=== PATIENT | male | born 1990 | race Caucasian/White ===

== ENCOUNTER 2017-08-05 15:27 | Emergency (ER) | payer OTHER ==
[2017-08-05 17:16] VITALS: BP 137/72
--- NOTE | 2017-08-05 17:16 | UC ---
Throat Pain/Nasal [place] HPI - HPI Summary HPI Summary: 27 Y/o male presents to the urgent care c/o nasal congestion with clear nasal discharge and dry cough since yesterday. Mild chills and body aches this morning. Pt reports his was Dx with Influenza B yesterday. Pt denies fever , SOB, chest pain, N/V/D, abdominal pain. - History of Current Complaint Chief Complaint: UCRespiratory Stated Complaint: FLU SYMPTOMS Time Seen by Provider: 08/05/17 17:14 Hx Obtained From: Patient Onset/Duration: Gradual Onset, Lasting Days - 1 day, Still Present Severity: Mild Pain Intensity: 0 Pain Scale Used: 0-10 Numeric Cough: Nonproductive Associated Signs & Symptoms: Positive: Nasal Discharge. Negative: Fever - Epiglottits Risk Factors Epiglottis Risk Factors: Negative - Allergies/Home Medications Allergies/Adverse Reactions: Allergies Allergy/AdvReac Type Severity Reaction Status Date / Time Azithromycin Allergy Hives Verified 08/05/17 17:10 [From Zithromax Z-Per] Cefaclor [From Ceclor] Allergy Rash Verified 08/05/17 17:10 PMH/Surg Hx/FS Hx/Imm Hx Previously Healthy: Yes Respiratory History: Asthma GI/ History: Ulcer - Surgical History Surgical History: Yes Surgery Procedure, Year, and Place: GALL BLADDER REMOVAL 07/10 - Family History Known Family History: Positive: Cardiac Disease, Hypertension, Diabetes - Social History Occupation: Employed Full-time Lives: With Family Alcohol Use: Occasionally Substance Use Type: Marijuana Smoking Status (MU): Heavy Every Day Tobacco Smoker Amount Used/How Often: 1.5 PPD Have You Smoked in the Last Year: Yes - Immunization History Most Recent Influenza Vaccination: NO Review of Systems Constitutional: Chills, Other - bodyaches Skin: Negative Eyes: Negative ENT: Nasal Discharge, Sinus Congestion Respiratory: Cough Cardiovascular: Negative Gastrointestinal: Negative Genitourinary: Negative Motor: Negative Neurovascular: Negative Musculoskeletal: Negative Neurological: Negative Psychological: Negative Is Patient Immunocompromised?: No All Other Systems Reviewed And Are Negative: Yes Physical Exam Triage Information Reviewed: Yes Vital Signs: Initial Vital Signs Temp 96.7 F 08/05/17 17:10 Pulse 85 08/05/17 17:10 Resp 18 08/05/17 17:10 BP 137/72 08/05/17 17:10 Pulse Ox 99 08/05/17 17:10 - Additional Comments VITAL SIGNS: Reviewed. GENERAL: Patient is a well developed and nourished male who is sitting comfortable in the examining table. Patient is not in any acute respiratory distress. HEAD AND FACE: No signs of trauma. No ecchymosis, hematomas or skull depressions. No sinus tenderness. edematous erythematous nasal mucosa with yellowish discharge, EYES: PERRLA, EOMI x 2, No injected conjunctiva, clear watery eyes, no nystagmus. No photophobia. EARS: Hearing grossly intact. Ear canals and tympanic membranes are within normal limits. MOUTH: Positive pharynx with mild erythema, no exudates,no palatal petechiae. no B/L tonsillar enlargement Uvula in midline. NECK: Supple, trachea is midline, Positive anterior cervical lymphadenopathy, no JVD, no carotid bruit, no c-spine tenderness, neck with full ROM. No meningeal signs, no Kernig's or brudzinskis signs. CHEST: Symmetric, no tenderness at palpation LUNGS: Clear to auscultation bilaterally. No wheezing or crackles. CVS: Regular rate and rhythm, S1 and S2 present, no murmurs or gallops appreciated. ABDOMEN: Soft, non-tender. No signs of distention. No rebound no guarding, and no masses palpated. Bowel sounds are normal. EXTREMITIES: FROM in all major joints, no edema, no cyanosis or clubbing. NEURO: Alert and oriented x 3. No acute neurological deficits. Speech is normal and follows commands. SKIN: Dry and warm Throat Pain/Nasal Course/Dx - Course Course Of Treatment: 27 Y/o male presents to the urgent care c/o nasal congestion with clear nasal discharge and dry cough since yesterday. Mild chills and body aches this morning. Pt reports his was Dx with Influenza B yesterday. Pt denies fever, SOB, chest pain, N/V/D, abdominal pain.Hx obtained. Pt with URI on examination. Influenza A&B ordered: result: negative.Pt exposure to Influenza B. and Daughter w/ Influenza B. Pt Rx Tamiflu PO. Advised on hand washing. Pt advised to rest, increase fluid intake, eat well and avoid strenuous exercise. If symptoms do not improve or worsen advised to return to the urgent care or f/u with her PCP for further evaluation and treatment. Pt understood and agreed with plan of care. - Differential Dx/Diagnosis Differential Diagnosis/HQI/PQRI: Influenza, Laryngitis, Pharyngitis, Sinusitis, URI Provider Diagnoses: 1- Exposure to Influenza B. 2- URI Discharge - Discharge Plan Condition: Stable Disposition: HOME Prescriptions: Oseltamivir CAP* [Tamiflu CAP*] 75 mg PO BID #10 cap Patient Education Materials: Influenza (ED) Forms: *Work Release Referrals: [facility] [Outside] - 1 Day Additional Instructions: 1- Your and daughter are positive for Influenza B. Your test is negative however i will Tx prophylactically 1- Please take the full course of the antiviral to avoid resistance. Encourage hand washing and wear a mask to avoid spreading. 2-Please continue taking Tylenol PO q6-8hrs prn as instructed after meals to alleviate fever, and sore throat. Increase fluid intake, eat well, rest and avoid strenuous exercise 3-If symptoms do not improve or worsen please return to the urgent care or f/u with your PCP in 2 days for further evaluation and treatment.
== END 2017-08-05 18:11 | disposition home or self-care (01) ==
LOC: UCCORT 15:27
DX: J06.9 Acute upper respiratory infection, unspecified (principal); Z20.828 Contact with and (suspected) exposure to other viral communicable diseases; J45.909 Unspecified asthma, uncomplicated; Z88.1 Allergy status to other antibiotic agents; Z90.49 Acquired absence of other specified parts of digestive tract; F12.90 Cannabis use, unspecified, uncomplicated; F17.210 Nicotine dependence, cigarettes, uncomplicated
CPT/HCPCS: 87502; 99212; G0463

== ENCOUNTER 2018-01-12 14:36 | Emergency (ER) | payer OTHER ==
[2018-01-12 14:53] VITALS: BP 142/84
--- NOTE | 2018-01-12 15:43 | UC ---
Cardiac HPI - HPI Summary HPI Summary: 27 yo male with the onset of mild substernal chest pain this AM Lasted 15-20 minutes now completely resolved has had multiple similar spells the past 4 mos seen at [facility] recently with a much more severe episode record reviewed normal EKG normal CXR normal labs including TROP Has appt with lead customer service representative late January Primary has ordered an EST and ECHO...not yet scheduled - History of Current Complaint Chief Complaint: UCChestPain Stated Complaint: CHEST PAIN Time Seen by Provider: 01/12/18 14:38 Hx Obtained From: Patient Onset/Duration: Sudden Onset, Lasting Minutes Timing: Constant Initial Severity: Mild Current Severity: None Pain Intensity: 0 Chest Pain Location: Mid Sternal Character: Pressure/Squeezing Aggravating Factor(s): Nothing Alleviating Factor(s): Spontaneous Resolution Associated Signs & Symptoms: Positive: Chest Pain - Allergy/Home Medications Allergies/Adverse Reactions: Allergies Allergy/AdvReac Type Severity Reaction Status Date / Time azithromycin Allergy Hives Verified 01/12/18 14:41 cefaclor [From [facility]] Allergy Rash Verified 01/12/18 14:41 Home Medications: Home Medications Aspirin 81 mg CHEW TAB* 1 tab DAILY 01/12/18 [History Confirmed 01/12/18] PMH/Surg Hx/FS Hx/Imm Hx Previously Healthy: Yes - Surgical History Surgical History: Yes Surgery Procedure, Year, and Place: GALL BLADDER REMOVAL 07/10 - Family History Known Family History: Positive: Cardiac Disease, Hypertension, Diabetes - Social History Alcohol Use: Occasionally Substance Use Type: Marijuana Substance Use Comment - Amount & Last Used: 01/12/18 Smoking Status (MU): Heavy Every Day Tobacco Smoker Type: Cigarettes Amount Used/How Often: 1.5 PPD Have You Smoked in the Last Year: Yes Cessation Counseling: Patient Advised to Stop - Immunization History Most Recent Influenza Vaccination: NO Review of Systems Constitutional: Negative Skin: Negative Eyes: Negative ENT: Negative Respiratory: Negative Cardiovascular: Chest Pain Gastrointestinal: Negative Genitourinary: Negative Motor: Negative Neurovascular: Negative Musculoskeletal: Negative Neurological: Negative Psychological: Negative Is Patient Immunocompromised?: No All Other Systems Reviewed And Are Negative: Yes Physical Exam Triage Information Reviewed: Yes Appearance: Well-Appearing, No Pain Distress, Well-Nourished Vital Signs: Initial Vital Signs Temp 98.2 F 01/12/18 14:41 Pulse 93 01/12/18 14:41 Resp 26 01/12/18 14:41 BP 142/84 01/12/18 14:41 Pulse Ox 98 01/12/18 14:41 Vital Signs Reviewed: Yes Eyes: Positive: Conjunctiva Clear ENT: Positive: Hearing grossly normal. Negative: Nasal congestion, Nasal drainage, Trismus, Muffled voice Neck: Positive: Supple, Nontender, No Lymphadenopathy Respiratory: Positive: Chest non-tender, Lungs clear, Normal breath sounds, No respiratory distress, No accessory muscle use Cardiovascular: Positive: RRR, No Murmur, Pulses Normal Abdomen Description: Positive: Nontender, No Organomegaly, Soft Musculoskeletal: Positive: ROM Intact, No Edema Neurological: Positive: Alert, Muscle Tone Normal Psychological Exam: Normal Skin Exam: Normal Diagnostics - EKG Cardiac Rate: NL Cardiac Rhythm: Sinus: Normal Ectopy: None ST Segment: Normal - Assessment/Plan Course Of Treatment: I advise pt that we could not rule out a serious cardiac issue including TX here. He is aware of risks and refuses to go to [facility] - Clinical Impression Provider Diagnoses: chest pain of uncertain cause. smoker. elevated BP without diagnosis of hypertension Discharge - Sign-Out/Discharge Documenting (check all that apply): Discharge/Admit/Transfer - Discharge Plan Condition: Stable Disposition: HOME Patient Education Materials: Chest Pain (ED) Referrals: Anika Juarez [Primary Care Provider] - If Needed Additional Instructions: You EKG was normal As discussed the only was to make sure this is not due to a heart attack is to send you to the ER for special tests Please go there if you change your mind Certainly you should get rechecked if symptoms recur or new symptoms develop you need to STOP SMOKING - Billing Disposition and Condition Condition: STABLE Disposition: Home
== END 2018-01-12 15:43 | disposition home or self-care (01) ==
LOC: UCCORT 14:36
DX: R07.2 Precordial pain (principal); F17.210 Nicotine dependence, cigarettes, uncomplicated; R03.0 Elevated blood-pressure reading, without diagnosis of hypertension; Z88.1 Allergy status to other antibiotic agents
CPT/HCPCS: 93005; 99211; G0463

== ENCOUNTER 2018-02-28 21:08 | Emergency (ER) | payer OTHER ==
[2018-02-28 21:24] VITALS: BP 160/85
[2018-02-28] MEDS ORDERED: Acetaminophen TAB* 325 MG PO ONE (21:45)
--- NOTE | 2018-02-28 21:53 | UC ---
Headache HPI - HPI Summary HPI Summary: Patient states he was working in [employer] during the heatwave and developed vomiting, diarrhea and fever with tmax of 103F yesterday. The vomiting and diarrhea subsided spontaneously and today he has been able to take plenty of fluids albeit no food intake due to loss of apetite. Has taken excedrin for fever and recurrence of migraine today, which is affecting the back of his neck and occiput.He states his migraines have had this presentation in the past. Denies aura. He states temperature is increasing again and so is the headache. - History Of Current Complaint Chief Complaint: UCGI Stated Complaint: FEVER, VOMITING/DIARRHEA Time Seen by Provider: 02/28/18 21:29 Hx Obtained From: Patient Onset/Duration: Sudden Onset, Lasting Days Onset Of Symptoms: Sudden Currently Pain Is: Moderate Pain Intensity: 6 Timing: Constant, Hours Character: Dull, Pressure Location of Headache: Occipital Allevating Factor(s): Medication Associated Signs And Symptoms: Positive: Nausea - Risk Factors SAH Risk Factors: Smoking SDH Risk Factors: Male Temporal Arteritis Risk Factors: Negative - Allergies/Home Medications Allergies/Adverse Reactions: Allergies Allergy/AdvReac Type Severity Reaction Status Date / Time azithromycin Allergy Hives Verified 02/28/18 21:19 cefaclor [From Ceclor] Allergy Rash Verified 02/28/18 21:19 Home Medications: Home Medications Aspirin/Acetaminophen/Caffeine [Excedrin Migraine Caplet] 2 each PO ONCE PRN 01/10 [History Confirmed 02/28/18] PMH/Surg Hx/FS Hx/Imm Hx Previously Healthy: Yes - Surgical History Surgical History: Yes Surgery Procedure, Year, and Place: GALL BLADDER REMOVAL 07/10 - Family History Known Family History: Positive: Cardiac Disease, Hypertension, Diabetes - Social History Alcohol Use: Occasionally Substance Use Type: Marijuana Substance Use Comment - Amount & Last Used: 01/12/18 Smoking Status (MU): Heavy Every Day Tobacco Smoker Type: Cigarettes Amount Used/How Often: 1.5 PPD Length of Time of Smoking/Using Tobacco: 10 yrs Have You Smoked in the Last Year: Yes - Immunization History Most Recent Influenza Vaccination: NO Review of Systems All Other Systems Reviewed And Are Negative: Yes Physical Exam Triage Information Reviewed: Yes Appearance: Ill-Appearing, Pain Distress, Obese Vital Signs: Initial Vital Signs Temp 100.2 F 02/28/18 21:20 Pulse 104 02/28/18 21:20 Resp 32 02/28/18 21:20 BP 160/85 02/28/18 21:20 Pulse Ox 99 02/28/18 21:20 Vital Signs Reviewed: Yes Eyes: Positive: Conjunctiva Clear ENT: Positive: Hearing grossly normal, Pharynx normal, TMs normal, Uvula midline Neck: Positive: Supple, Nontender, No Lymphadenopathy Respiratory: Positive: Chest non-tender, Lungs clear, Normal breath sounds, No respiratory distress Cardiovascular: Positive: RRR, No Murmur, Pulses Normal, Brisk Capillary Refill Abdomen Description: Positive: Nontender, No Organomegaly, Soft Bowel Sounds: Positive: Present Musculoskeletal: Positive: Strength Intact, ROM Intact, No Edema Neurological: Positive: Alert, Muscle Tone Normal Skin Exam: Normal Headache Course/Dx - Course Course Of Treatment: Patient who presents with persistent fever and headaches after episode of gastroenteritis with has since resolved. Discussed signs and symptoms of meningitis and that he should go to the ER if they present such as worsening fever, nuchal rigidity, photophobia, vomiting. Patient declines to go to the ER at this point and will observe for those symptoms. CBC, SMAC obtained and will follow up results tomorrow, patient will be called to f/u on his clinical progress. - Differential Dx/Diagnosis Provider Diagnoses: migraine headache. gastroenteritis. Elevated BP without history of HTN Discharge - Sign-Out/Discharge Documenting (check all that apply): Patient Departure - Discharge Plan Condition: Guarded Disposition: HOME Patient Education Materials: Gastroenteritis (ED), Migraine Headache (ED) Referrals: Anika Juarez [Primary Care Provider] - - Billing Disposition and Condition Condition: GUARDED Disposition: Home
[2018-03-01 11:05] LABS: ABS Basophils 0 10^3/ul (0-0.2); ABS Eosinophils 0 10^3/ul (0-0.6); ABS Lymphocytes 0.7 10^3/ul (1.0-4.8); ABS Monocytes 0.2 10^3/ul (0-0.8); ABS Neutrophils 2.6 10^3/ul (1.5-7.7); ABS Nucleated RBC 0 10^3/ul; Eosinophil % 0.1 % (0-6); Hematocrit 45 % (42-52); Hemoglobin 15.8 g/dl (14.0-18.0); Lymphocyte % 19.3 % (25-47); Mean Corpuscular HGB Conc 35 g/dl (31-36); Mean Corpuscular Hemoglobin 30 pg (27-31); Mean Corpuscular Volume 86 fL (80-94); Mean Platelet Volume 9.3 um3 (7.4-10.4); Nucleated Red Blood Cells % 0.2; Platelet Count 131 10^3/ul (150-450); Red Blood Count 5.18 10^6/ul (4.00-5.40); Red Cell Distribution Width 12 % (10.5-15); White Blood Count 3.5 10^3/ul (3.5-10.8)
[2018-03-01 11:27] LABS: EGFR Non-African American 75.4 (>60)
--- NOTE | 2018-03-02 07:24 | UC ---
- Progress Note Progress Note: CBC amd CMP reviewed no change 03/02/2018, ljj Discharge - Sign-Out/Discharge Documenting (check all that apply): Post-Discharge Follow Up - Discharge Plan Condition: Guarded Disposition: HOME Patient Education Materials: Migraine Headache (ED), Gastroenteritis (ED) Forms: *Work Release Referrals: Anika Juarez [Primary Care Provider] - Additional Instructions: follow up lab test results, follow up phone call to be scheduled. - Billing Disposition and Condition Condition: GUARDED Disposition: Home
== END 2018-02-28 22:08 | disposition home or self-care (01) ==
LOC: UCCORT 21:08
DX: G43.909 Migraine, unspecified, not intractable, without status migrainosus (principal); K52.9 Noninfective gastroenteritis and colitis, unspecified; R03.0 Elevated blood-pressure reading, without diagnosis of hypertension; Z88.1 Allergy status to other antibiotic agents; Z88.8 Allergy status to other drugs, medicaments and biological substances
CPT/HCPCS: 36415; 80053; 85025; 99212; A9270-GY; G0463

== ENCOUNTER 2018-10-12 13:38 | Emergency (ER) | payer OTHER ==
[2018-10-12 13:53] VITALS: BP 153/82
--- NOTE | 2018-10-12 14:24 | UC ---
Abdominal Pain Male HPI - HPI Summary HPI Summary: Pt presents with sudden onset nausea, vomiting and diarrhea that began last night. Pt had zofran at home and attempted to take one at separate time sand was unable to stop vomiting long enough to take the medicine. Pt states he did not know that there was medicine that he could by to help manage diarrhea OTC. Pt reports he is voiding and that he is able to keep "gatorade down" - History of Current Complaint Chief Complaint: UCGI Stated Complaint: STOMACH ACHE/VOMITING Time Seen by Provider: 10/12/18 14:11 Hx Obtained From: Patient Onset/Duration: Sudden Onset, Lasting Hours, Still Present Severity Initially: Moderate Pain Intensity: 4 Location: Diffuse Radiates: No Character: Burning, Colicy, Cramping, Dull Aggravating Factor(s): Food Alleviating Factor(s): Nothing Associated Signs And Symptoms: Positive: Decreased Appetite, Nausea, Vomiting, Diarrhea - Risk Factors Testicular Torsion: Negative Cardiac Risk Factors: Negative - Allergies/Home Medications Allergies/Adverse Reactions: Allergies Allergy/AdvReac Type Severity Reaction Status Date / Time azithromycin Allergy Hives Verified 10/12/18 13:49 cefaclor [From Ceclor] Allergy Rash Verified 10/12/18 13:49 PMH/Surg Hx/FS Hx/Imm Hx Previously Healthy: Yes GI/ History: Ulcer - Surgical History Surgical History: Yes Surgery Procedure, Year, and Place: GALL BLADDER REMOVAL 07/10 - Family History Known Family History: Positive: Cardiac Disease, Hypertension, Diabetes - Social History Occupation: Employed Full-time Lives: With Family Alcohol Use: None Substance Use Type: Marijuana Substance Use Comment - Amount & Last Used: 3-4 xweek; 10/11/18 Smoking Status (MU): Heavy Every Day Tobacco Smoker Type: Cigarettes Amount Used/How Often: 1.5 PPD Length of Time of Smoking/Using Tobacco: 10 yrs Have You Smoked in the Last Year: Yes Household Exposure Type: Cigarettes - Immunization History Most Recent Influenza Vaccination: NO Vaccination Up to Date: No Review of Systems All Other Systems Reviewed And Are Negative: Yes Constitutional: Positive: Fever, Chills, Fatigue Skin: Positive: Negative Eyes: Positive: Negative ENT: Positive: Negative Respiratory: Positive: Negative Cardiovascular: Positive: Negative Gastrointestinal: Positive: Abdominal Pain, Vomiting, Diarrhea, Nausea Genitourinary: Positive: Negative Motor: Positive: Negative Neurovascular: Positive: Negative Musculoskeletal: Positive: Negative Neurological: Positive: Negative Psychological: Positive: Negative Is Patient Immunocompromised?: No Physical Exam Triage Information Reviewed: Yes Appearance: Ill-Appearing Vital Signs: Initial Vital Signs Temp 97.1 F 10/12/18 13:49 Pulse 67 10/12/18 13:49 Resp 20 10/12/18 13:49 BP 153/82 10/12/18 13:49 Pulse Ox 100 10/12/18 13:49 Vital Signs Reviewed: Yes Eye Exam: Normal ENT Exam: Normal Dental Exam: Normal Neck exam: Normal Respiratory Exam: Normal Cardiovascular Exam: Normal Abdominal Exam: Normal Abdomen Description: Positive: Nontender Bowel Sounds: Positive: Present Musculoskeletal Exam: Normal Neurological Exam: Normal Psychological Exam: Normal Skin Exam: Normal Abd Pain Male Course/Dx - Differential Dx/Clinical Impression Differential Diagnosis/HQI/PQRI: Urinary Tract Infection Provider Diagnosis: Gastroenteritis Discharge - Sign-Out/Discharge Documenting (check all that apply): Patient Departure All imaging exams completed and their final reports reviewed: No Studies - Discharge Plan Condition: Stable Disposition: HOME Prescriptions: Ondansetron TAB* [Zofran 4 MG Tab*] 8 mg PO Q8H PRN #15 tab PRN Reason: Nausea Patient Education Materials: Loperamide (By mouth), Gastroenteritis (ED) Referrals: Anika Juarez [Primary Care Provider] - If Needed - Billing Disposition and Condition Condition: STABLE Disposition: Home
== END 2018-10-12 14:30 | disposition home or self-care (01) ==
LOC: UCCORT 13:38
DX: K52.9 Noninfective gastroenteritis and colitis, unspecified (principal); F17.210 Nicotine dependence, cigarettes, uncomplicated; Z88.1 Allergy status to other antibiotic agents
CPT/HCPCS: 81003; 99212; G0463